=== PATIENT | female | born 1945 | race Caucasian/White ===

== ENCOUNTER 2017-03-29 22:21 | Emergency (ER) | payer OTHER, BC ==
--- NOTE | 2017-03-29 22:27 | PDOC ---
History of Present Illness - General Chief Complaint: Blood Pressure Problem Stated Complaint: HIGH BLOOD PRESSURE Time Seen by Provider: 03/29/17 22:25 History Source: Patient Exam Limitations: No Limitations - History of Present Illness Initial Comments: 03/29/17 22:39 This is a 71-year-old female who comes in complaining of elevated blood pressure. Patient says she has a history of hypertension times many many years. Patient went to an urgent care center yesterday because she took her blood pressure and it was elevated. They've started her on a medication for it and she took her blood pressure again today and was still elevated. Patient expected that the blood pressure would not be as elevated as it was yesterday and so she comes in for reevaluation. Patient denies any headache, nausea, chest pain, shortness of breath, neurological complaints or any complaints whatsoever. Patient said she is completely at her baseline and has no complaints but was concerned because the elevated blood pressure. Patient does not have a primary care doctor however she did call her son's primary care doctor and has an appointment to see her son's primary care DrJelly next week. PAST MEDICAL HISTORY: no significant history PAST SURGICAL HISTORY: no significant history FAMILY HISTORY: no pertinant history SOCIAL HISTORY: Pt lives with family and is employed. MEDICATIONS: reviewed ALLERGIES: As per nursing notes Review of Systems General: No fevers or chills, no weakness, no weight loss HEENT: No change in vision. No sore throat,. No ear pain CardioVascular: No chest pain or shortness of breath Respiratory:No cough, or wheezing. Gastrointestinal: no nausea, vomitting, diarrhea or constipation, No rectal bleeding Genitourinary: No dysuria, hematuria, or frequency Musculoskeletal: No joint or muscle pain or swelling Neurologic: No headache, vertigo, dizziness or loss of consciousness Psychiatric: nor depression Skin: No rashes or easy bruising Endocrine: no increased thirst or abnormal weight change Allergic: no skin or latex allergy All other systems reviewed and normal GENERAL: The patient is awake, alert, and fully oriented, in no acute distress. HEAD: Normal with no signs of trauma. EYES: Pupils equal, round and reactive to light, extraocular movements intact, sclera anicteric, conjunctiva clear. EXTREMITIES: Normal range of motion, no edema. NEUROLOGICAL: Normal speech, normal gait. PSYCH: Normal mood, normal affect. SKIN: Warm, Dry, normal turgor, no rashes or lesions noted. Assessment and plan: This is a 71-year-old female with elevated blood pressure. Patient has had a long history of hypertension times many years and that was started on medication yesterday. I told patient it will take a while for the medication to work probably 1-2 weeks and that she should follow-up with a primary care doctor to have if her medication reevaluated and adjusted as needed. Discussed with patient what to return to the ER for and patient discharged home Past History - Past Medical History Allergies/Adverse Reactions: Allergies Allergy/AdvReac Type Severity Reaction Status Date / Time No Known Allergies Allergy Verified 03/29/17 22:27 Home Medications: Ambulatory Orders Amlodipine Besylate 10 mg PO DAILY 03/29/17 HTN: Yes - Surgical History Cardiac Surgery: Yes (stent) - Immunization History Immunization Up to Date: Yes - Psycho/Social/Smoking Cessation Hx Suicidal Ideation: No Smoking History: Current every day smoker Number of Cigarettes Smoked Daily: 10 Hx Alcohol Use: No Drug/Substance Use Hx: No Substance Use Type: None *DC/Admit/Observation/Transfer Diagnosis at time of Disposition: Essential hypertension - Discharge Dispostion Disposition: HOME Condition at time of disposition: Stable Admit: No - Patient Instructions Additional Instructions: it will take one to 2 weeks before the medication that he was started on well take full affected. Call a primary care doctor in the morning make an appointment for next week. Return to the emergency department immediately with ANY new, persistent or worsening symptoms. Continue any medications as previously prescribed by your physician. You should follow up with your primary doctor as soon as possible regarding today's emergency department visit. . Please make sure your doctor reviews the results of your emergency evaluation. Thank you for coming to the Emergency Department today for your care. It was a pleasure to see you today. Please note that your evaluation is INCOMPLETE until you follow-up with your doctor.
[2017-03-29 22:35] VITALS: BP 171/107; PULSE 94; BMI 22.6
== END 2017-03-29 22:54 | disposition home or self-care (01) ==
LOC: FER 22:21
DX: I10 Essential (primary) hypertension (principal); Z95.5 Presence of coronary angioplasty implant and graft; F17.210 Nicotine dependence, cigarettes, uncomplicated
CPT/HCPCS: 99281-25